=== PATIENT | female | born 1970 | race Caucasian/White ===

== ENCOUNTER 2021-07-14 09:04 | Day surgery (SDC) | payer OTHER ==
[2021-07-11 11:32] LABS: BASOPHILS % (AUTO) 0.7 % (0.0-2.0); EOSINOPHILS # (AUTO) 0.1 K/uL (0-0.4); HEMATOCRIT 38.3 % (36-48); HEMOGLOBIN 13.2 g/dL (12.0-16.0); LYMPHOCYTES # (AUTO) 1.9 K/uL (2.5-16.5); LYMPHOCYTES % (AUTO) 36.6 % (20.5-51.1); MEAN CORPUSCULAR HEMOGLOBIN 30 pg (27-31); MEAN CORPUSCULAR HGB CONC 35 g/dL (33-37); MEAN CORPUSCULAR VOLUME 86.7 fL (80-94); MONOCYTES # (AUTO) 0.4 K/uL (0.8-1.0); MONOCYTES % (AUTO) 7.4 % (1.7-9.3); NEUTROPHILS # (AUTO) 2.8 K/uL (1.8-7.7); NEUTROPHILS % (AUTO) 53.3 % (42.2-75.2); PLATELET COUNT (AUTO) 222 K/uL (140-450); RED BLOOD CELL COUNT(AUTO) 4.41 MIL/uL (4.20-5.40); RED CELL DISTRIBUTION WIDTH 13.9 % (11.6-13.7); WHITE BLOOD COUNT (AUTO) 5.2 K/uL (4.8-10.8)
[2021-07-11 11:45] LABS: ALBUMIN 3.9 g/dL (3.4-5.0); ANION GAP 11.4 (8-16); CARBON DIOXIDE 27.7 mmol/L (21-32); CREATININE 0.6 mg/dL (0.6-1.3); POTASSIUM 4.1 mmol/L (3.5-5.1); TOTAL BILIRUBIN 0.4 mg/dL (0.0-1.0)
[2021-07-11 12:00] LABS: PROTHROMBIN TIME 10.5 secs (10.8-13.4)
[~2021-07-14] VITALS: Ht 162.6 cm; Wt 81.6 kg
[2021-07-14] MEDS ORDERED: LIDOCAINE 1% 500 MG/50 ML VIAL ONE ×2 (10:13→10:26)
[2021-07-14] MEDS ORDERED: BUPIVACAINE-MPF 0.25% 30 ML VIAL INJ ONE ×2 (10:13→10:26)
[2021-07-14] MEDS ORDERED: DESFLURANE 240 ML BTL INH ONE (11:45)
[2021-07-14] MEDS ORDERED: KETOROLAC 30 MG/ML VIAL ONE (11:49)
[2021-07-14] MEDS ORDERED: PROPOFOL 200 MG/20 ML VIAL IV ONE (11:49)
[2021-07-14] MEDS ORDERED: DEXAMETHASONE 4 MG/ML VIAL ONE (11:49)
[2021-07-14] MEDS ORDERED: ONDANSETRON 4 MG/2 ML VIAL ONE (11:49)
[2021-07-14] MEDS ORDERED: fentaNYL citrate 0.05 MG/ML VIAL ONE (11:50)
[2021-07-14] MEDS ORDERED: ONDANSETRON 4 MG/2 ML VIAL IVP PRN (13:30)
[2021-07-14] MEDS: HYDROmorphone 1 MG/ML AMP IVP PRN ×2 (14:12→14:22)
[2021-07-14] MEDS ORDERED: HYDROmorphone PFS 2 MG/ML SYR ONE (14:13)
== END 2021-07-14 15:35 | disposition home or self-care (01) ==
LOC: MDS 09:04 → MMU 09:05 → MDS 15:35
PROVIDERS: ATTEND Podiatrist Foot & Ankle Surgery
DX: M20.41 Other hammer toe(s) (acquired), right foot (principal); M21.611 Bunion of right foot; Z20.822 Contact with and (suspected) exposure to COVID-19; Z79.01 Long term (current) use of anticoagulants; Z79.899 Other long term (current) drug therapy
CPT/HCPCS: 28285; 28299; 36415; 71045; 73630; 80053; 85025; 85610; 85730; 87426; C1713; J0690; J1100; J1170; J1885; J2001; J2405; J2704; J3010; J3490; J7060; J7120; Q0092

== ENCOUNTER 2021-11-06 06:38 | Day surgery (SDC) | payer OTHER ==
[~2021-11-06] VITALS: Ht 162.6 cm; Wt 77.1 kg
[2021-11-06] MEDS ORDERED: BUPIVACAINE-MPF 0.25% 30 ML VIAL INJ ONE (07:32)
[2021-11-06] MEDS ORDERED: LIDOCAINE 1% 500 MG/50 ML VIAL ONE (07:32)
[2021-11-06 07:41] LABS: MEAN CORPUSCULAR VOLUME 86.5 fL (80-94); RED BLOOD CELL COUNT(AUTO) 4.05 MIL/uL (4.20-5.40); WHITE BLOOD COUNT (AUTO) 6.5 K/uL (4.8-10.8)
[2021-11-06 07:42] LABS: BASOPHILS % (AUTO) 0.6 % (0.0-2.0); EOSINOPHILS # (AUTO) 0.1 K/uL (0-0.4); EOSINOPHILS % (AUTO) 1.8 % (0.0-4.0); LYMPHOCYTES % (AUTO) 30.8 % (20.5-51.1); MEAN CORPUSCULAR HEMOGLOBIN 30 pg (27-31); MEAN CORPUSCULAR HGB CONC 34 g/dL (33-37); MONOCYTES # (AUTO) 0.5 K/uL (0.8-1.0); MONOCYTES % (AUTO) 7.3 % (1.7-9.3); NEUTROPHILS # (AUTO) 3.8 K/uL (1.8-7.7); NEUTROPHILS % (AUTO) 59.5 % (42.2-75.2); PLATELET COUNT (AUTO) 226 K/uL (140-450); RED CELL DISTRIBUTION WIDTH 13.3 % (11.6-13.7)
[2021-11-06] MEDS ORDERED: DESFLURANE 240 ML BTL INH ONE (07:57)
[2021-11-06] MEDS ORDERED: fentaNYL citrate 0.05 MG/ML VIAL ONE (08:04)
[2021-11-06] MEDS ORDERED: DEXAMETHASONE 4 MG/ML VIAL ONE (08:05)
[2021-11-06] MEDS ORDERED: KETOROLAC 30 MG/ML VIAL ONE (08:05)
[2021-11-06] MEDS ORDERED: PROPOFOL 200 MG/20 ML VIAL IV ONE (08:05)
[2021-11-06] MEDS ORDERED: ONDANSETRON 4 MG/2 ML VIAL ONE (08:05)
[2021-11-06] MEDS ORDERED: HYDROmorphone PFS 2 MG/ML SYR ONE (08:28)
[2021-11-06 08:51] LABS: PROTHROMBIN TIME 10.5 secs (10.8-13.4)
[2021-11-06 09:01] LABS: APPEARANCE,URINE CLEAR (CLEAR); COLOR,URINE YELLOW (YELLOW)
[2021-11-06 09:02] LABS: BILIRUBIN,URINE NEGATIVE (NEGATIVE); BLOOD, URINE NEGATIVE (NEGATIVE); NITRITE, URINE NEGATIVE (NEGATIVE); UGLUCOSE NEGATIVE (NEGATIVE)
[2021-11-06 09:03] LABS: LEUKOCYTE ESTERASE ,URINE NEGATIVE (NEGATIVE)
[2021-11-06 09:18] LABS: CARBON DIOXIDE 26.3 mmol/L (21-32); CHLORIDE 107 mmol/L (98-107); POTASSIUM 4.2 mmol/L (3.5-5.1); SODIUM SERUM 142 mmol/L (136-145)
[2021-11-06 09:19] LABS: ASPARTATE AMINOTRANSFERASE 35 U/L (15-37); CREATININE 0.7 mg/dL (0.6-1.3); GFR ARICAN-AMERICAN 113 mL/min (>90); GLUCOSE 146 mg/dL (74-106); TOTAL BILIRUBIN 0.4 mg/dL (0.0-1.0); UREA NITROGEN, BLOOD 13 mg/dL (7-18)
[2021-11-06 09:20] LABS: ALBUMIN 3.7 g/dL (3.4-5.0)
== END 2021-11-06 13:30 | disposition home or self-care (01) ==
LOC: MMU 06:38 → MDS 06:38
PROVIDERS: ATTEND Podiatrist Foot & Ankle Surgery
DX: M21.612 Bunion of left foot (principal); M20.42 Other hammer toe(s) (acquired), left foot; M21.372 Foot drop, left foot; E11.9 Type 2 diabetes mellitus without complications; Z79.01 Long term (current) use of anticoagulants; Z79.899 Other long term (current) drug therapy
CPT/HCPCS: 28285; 28299; 36415; 71045; 73620; 80053; 81003; 81025; 85025; 85610; 85730; 87426; 93005; C1713; J0690; J1100; J1170; J1885; J2001; J2405; J2704; J3010; J3490; J7060; J7120; Q0092

== ENCOUNTER 2022-02-16 08:01 | Day surgery (SDC) | payer OTHER ==
[~2022-02-16] VITALS: Ht 162.6 cm; Wt 80.3 kg
[2022-02-16] MEDS ORDERED: LIDOCAINE 1% 500 MG/50 ML VIAL ONE ×2 (12:12→12:13)
[2022-02-16] MEDS ORDERED: BUPIVACAINE-MPF 0.5% 30 ML VIAL INJ ONE (12:13)
[2022-02-16] MEDS ORDERED: HYDROGEN PEROXIDE 3% 240 ML BTL TP ONE (12:13)
[2022-02-16] MEDS ORDERED: DESFLURANE 240 ML BTL INH ONE (12:24)
[2022-02-16] MEDS ORDERED: ceFAZolin 1,000 MG VIAL ONE (12:31)
[2022-02-16] MEDS ORDERED: ONDANSETRON 4 MG/2 ML VIAL ONE (12:32)
[2022-02-16] MEDS ORDERED: PROPOFOL 200 MG/20 ML VIAL IV ONE (12:32)
[2022-02-16] MEDS ORDERED: KETOROLAC 30 MG/ML VIAL ONE (12:32)
[2022-02-16] MEDS ORDERED: DEXAMETHASONE 4 MG/ML VIAL ONE (12:32)
[2022-02-16] MEDS ORDERED: fentaNYL citrate 0.05 MG/ML VIAL ONE (12:32)
[2022-02-16] MEDS ORDERED: ONDANSETRON 4 MG/2 ML VIAL IVP PRN (13:40)
[2022-02-16] MEDS: HYDROmorphone 1 MG/ML AMP IVP PRN ×2 (14:10→14:20)
[2022-02-16] MEDS ORDERED: HYDROmorphone PFS 2 MG/ML SYR ONE (14:11)
== END 2022-02-16 16:45 | disposition short-term general hospital (02) ==
LOC: MMU 08:01 → MOR 08:01
PROVIDERS: ATTEND Podiatrist Foot & Ankle Surgery
DX: M20.41 Other hammer toe(s) (acquired), right foot (principal); E11.9 Type 2 diabetes mellitus without complications; Z79.84 Long term (current) use of oral hypoglycemic drugs; Z79.899 Other long term (current) drug therapy
CPT/HCPCS: 28285; 71045; 87426; 93005; J0690; J1100; J1170; J1885; J2001; J2405; J2704; J3010; J3490

== ENCOUNTER 2022-07-06 05:31 | Day surgery (SDC) | payer OTHER ==
[~2022-07-06] VITALS: Ht 170.2 cm; Wt 77.1 kg
[2022-07-06] MEDS ORDERED: BUPIVACAINE-MPF 0.5% 10 ML VIAL INJ ONE (07:36)
[2022-07-06] MEDS ORDERED: LIDOCAINE MPF 2% 100 MG/5 ML VIAL INJ ONE ×2 (07:36→09:16)
[2022-07-06] MEDS ORDERED: DESFLURANE 240 ML BTL INH ONE (08:46)
[2022-07-06] MEDS ORDERED: SEVOFLURANE 250 ML BTL INH ONE (08:46)
[2022-07-06] MEDS ORDERED: fentaNYL citrate 0.05 MG/ML VIAL ONE (09:12)
[2022-07-06] MEDS ORDERED: METOCLOPRAMIDE 10 MG/2 ML INJ VIAL ONE (09:18)
[2022-07-06] MEDS ORDERED: PROPOFOL 200 MG/20 ML VIAL IV ONE ×2 (09:18)
[2022-07-06] MEDS ORDERED: ONDANSETRON 4 MG/2 ML VIAL ONE (09:19)
[2022-07-06] MEDS ORDERED: KETOROLAC 30 MG/ML VIAL ONE (09:19)
[2022-07-06] MEDS ORDERED: hydrALAZINE 20 MG/ML VIAL IVP PRN (10:22)
[2022-07-06] MEDS ORDERED: LABETALOL 20 MG/4 ML VIAL IVP PRN (10:22)
[2022-07-06] MEDS ORDERED: HYDROmorphone 1 MG/ML AMP IVP PRN (10:25)
[2022-07-06] MEDS ORDERED: diphenhydrAMINE 50 MG/ML VIAL IVP PRN (10:25)
[2022-07-06] MEDS ORDERED: NACL 0.9% 1,000 ML IV SCH (10:25)
[2022-07-06] MEDS ORDERED: BLOOD GLUCOSE MONITORING 1 DEV DEV FS SCH (10:30)
== END 2022-07-06 13:22 | disposition home or self-care (01) ==
LOC: MDS 05:31 → MMU 05:48 → MDS 13:22
PROVIDERS: ATTEND Podiatrist Foot & Ankle Surgery
DX: M20.41 Other hammer toe(s) (acquired), right foot (principal); M20.61 Acquired deformities of toe(s), unspecified, right foot; I10 Essential (primary) hypertension; E11.9 Type 2 diabetes mellitus without complications; Z79.84 Long term (current) use of oral hypoglycemic drugs
CPT/HCPCS: 28285; 28308; 36415; 71045; 84702; J0690; J1885; J2001; J2405; J2704; J2765; J3010; J3490; J7030; J7060